=== PATIENT | male | born 2005 | race Caucasian/White ===

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

== ENCOUNTER 2024-01-21 16:41 | Emergency (ER) | payer SELFPAY ==
[~2024-01-21] VITALS: Ht 182.8 cm; Wt 89.8 kg
[~2024-01-21 16:41] MED LIST changes: +AVPAK AZITHROM250 MG PO
== END 2024-01-21 18:39 | disposition home or self-care (01) ==
LOC: ED 16:41
DX: J40 Bronchitis, not specified as acute or chronic (principal); Z20.822 Contact with and (suspected) exposure to COVID-19; F17.210 Nicotine dependence, cigarettes, uncomplicated

== ENCOUNTER 2024-03-12 16:07 | Emergency (ER) | payer OTHER ==
[~2024-03-12] VITALS: Ht 182.8 cm; Wt 93.0 kg
== END 2024-03-12 17:18 | disposition home or self-care (01) ==
LOC: ED 16:07
DX: S93.401A Sprain of unspecified ligament of right ankle, initial encounter (principal); X50.1XXA Overexertion from prolonged static or awkward postures, initial encounter; Y93.89 Activity, other specified; Y92.89 Other specified places as the place of occurrence of the external cause; Y99.8 Other external cause status

== ENCOUNTER 2025-01-24 22:47 | Emergency (ER) | payer SELFPAY ==
[~2025-01-24] VITALS: Ht 182.8 cm; Wt 95.3 kg
[2025-01-24] MEDS ORDERED: Amoxicillin/Clavulanate Pota 875 MG TAB PO ONE (23:55)
[2025-01-24] MEDS ORDERED: IBUPROFEN 800 MG 4 TAB ED PACK PO ONE (23:55)
[2025-01-25] MEDS ORDERED: CEPHALEXIN500 M1 PO (00:48)
== END 2025-01-25 00:56 | disposition home or self-care (01) ==
LOC: ED 22:47
DX: K04.7 Periapical abscess without sinus (principal)

== ENCOUNTER 2025-02-04 20:53 | Emergency (ER) | payer SELFPAY ==
[~2025-02-04] VITALS: Ht 182.9 cm; Wt 104.3 kg
[2025-02-04 21:24] LABS: BASO # 0.0 10*3/uL (0.0-0.1); BASO % 0.3 % (0.0-1.0); EOS # 0.1 10*3/uL (0.0-0.4); EOS % 1.7 % (1.0-4.0); MEAN CELL VOLUME 84.8 fl (80.0-94.0); MEAN CORPUSCULAR HGB 28.6 pg (27.0-31.0); MEAN PLATELET VOLUME 9.8 fl (9.6-12.3); MONO # 0.8 10*3/uL (0.1-1.0); MONO % 13.5 % (3.0-9.0); NEUT # 3.3 10*3/uL (2.3-7.9); NEUT % 57.0 % (47.0-73.0); NUCLEATED RED BLOOD CELL 0.0 % (0.0-0.0); NUCLEATED RED BLOOD CELL 0.0 10*3/uL (0.0-0.0); PLATELET COUNT AUTOMATED 314 10*3/uL (130-400); RED CELL DISTRI WIDTH 13.1 % (0-14.5)
[2025-02-04 21:42] LABS: BUN 14 mg/dl (9-23)
[2025-02-04] MEDS ORDERED: SODIUM CHLORIDE 0.9% 1,000 ML IV ONE (21:55)
[2025-02-04] MEDS ORDERED: diphenhydrAMINE hydrochloride 50 MG/ML VIAL IV ONE (21:55)
== END 2025-02-04 22:02 | disposition home or self-care (01) ==
LOC: ED 20:53
PROVIDERS: Nurse Practitioner Family
DX: R73.09 Other abnormal glucose (principal)